=== PATIENT | male | born 1945 | race Caucasian/White ===

== ENCOUNTER 2021-06-08 15:20 | Inpatient (IN) ==
[2021-06-08] MEDS ORDERED: Benzonatate 100 MG CAPSULE PO PRN (18:07)
[2021-06-08] MEDS ORDERED: *HR* Dextrose 50 % in Water (Vial) 50 ML VIAL IVP PRN (18:07)
[2021-06-08] MEDS ORDERED: D5% in Water 1,000 ML IVC PRN (18:07)
[2021-06-08] MEDS ORDERED: Dextrose Gel 15 GM/37.5 ML TUBE PO PRN ×2 (18:07)
[2021-06-08] MEDS: *HR* OxyCODONE Immed Rel 5 MG TABLET PO PRN (20:04)
[2021-06-09] MEDS: *HR* Enoxaparin 40 MG/0.4 ML SYRINGE SQ SCH (06:03)
[2021-06-09 07:01] LABS: Basophils % 0.2 %; Eosinophils % 0.6 %; Hematocrit 30.5 % (37.5-50.1); Hemoglobin 9.4 g/dL (12.9-16.9); Immature Granulocytes % 0.4 % (0-4); Lymphocytes # 1.2 K/mcL (0.6-4.6); Lymphocytes % 22.9 %; Mean Corpuscular HGB Conc 30.8 g/dL (31.6-35.5); Mean Corpuscular Hemoglobin 24.6 pg (28.0-33.3); Mean Corpuscular Volume 79.8 fL (83.0-100.0); Mean Platelet Volume 9.9 fL (9.4-12.4); Monocytes # 0.4 K/mcL (0.0-1.3); Monocytes % 8.6 %; Neutrophils # 3.4 K/mcL (1.6-8.9); Platelet Count 213 K/mcL (140-400); Red Blood Count 3.82 M/mcL (4.19-5.50); Segmented Neutrophils % 67.3 %; White Blood Count 5.1 K/mcL (4.3-11.1)
[2021-06-09 07:25] LABS: BUN/Creatinine Ratio 23 (6-26); Blood Urea Nitrogen 20 mg/dL (8-23); Calcium 9.3 mg/dL (8.6-10.3); Carbon Dioxide 31 mEq/L (23-29); Chloride 95 mEq/L (98-107); Glucose 69 mg/dL (70-105); Osmolality,Calculated 277 (280-300); Potassium 3.9 mEq/L (3.5-5.1); Sodium 133 mEq/L (136-145); eGFR For African Americans > 60 (> 60); eGFR For Non-African Americans > 60 (> 60)
[2021-06-09] MEDS: Insulin LISPRO 300 UNITS/3 ML VIAL SUBQ SCH ×3 (08:52→16:28)
[2021-06-09] MEDS: predniSONE 10 MG TABLET PO SCH (09:06)
[2021-06-09] MEDS: Venlafaxine XR (24 HR) 150 MG CAP.ER.24H PO SCH (09:06)
[2021-06-09] MEDS: (Mirabegron [Myrbetriq] 50 MG Tab.Er.24h) PO SCH (11:08)
[2021-06-09] MEDS: *HR* OxyCODONE Immed Rel 5 MG TABLET PO PRN (11:31)
[2021-06-10] MEDS: *HR* OxyCODONE Immed Rel 5 MG TABLET PO PRN ×2 (02:49→18:43)
[2021-06-10] MEDS: *HR* Enoxaparin 40 MG/0.4 ML SYRINGE SQ SCH (05:30)
[2021-06-10] MEDS: Insulin LISPRO 300 UNITS/3 ML VIAL SUBQ SCH ×3 (08:07→16:55)
[2021-06-10] MEDS: predniSONE 10 MG TABLET PO SCH (10:49)
[2021-06-10] MEDS: Venlafaxine XR (24 HR) 150 MG CAP.ER.24H PO SCH (10:49)
[2021-06-10] MEDS: (Mirabegron [Myrbetriq] 50 MG Tab.Er.24h) PO SCH (10:49)
[2021-06-11] MEDS: *HR* Enoxaparin 40 MG/0.4 ML SYRINGE SQ SCH (05:13)
[2021-06-11] MEDS: *HR* OxyCODONE Immed Rel 5 MG TABLET PO PRN ×3 (05:13→21:24)
[2021-06-11] MEDS: Insulin LISPRO 300 UNITS/3 ML VIAL SUBQ SCH ×3 (09:04→17:06)
[2021-06-11] MEDS: (Mirabegron [Myrbetriq] 50 MG Tab.Er.24h) PO SCH (10:09)
[2021-06-11] MEDS: Venlafaxine XR (24 HR) 150 MG CAP.ER.24H PO SCH (10:09)
[2021-06-11] MEDS: predniSONE 10 MG TABLET PO SCH (10:09)
[2021-06-11] MEDS ORDERED: *HR* OxyCODONE Immed Rel 5 MG TABLET PO SCH (13:52)
[2021-06-12] MEDS: *HR* Enoxaparin 40 MG/0.4 ML SYRINGE SQ SCH (05:56)
[2021-06-12] MEDS: *HR* OxyCODONE Immed Rel 5 MG TABLET PO PRN ×3 (05:56→20:57)
[2021-06-12 08:04] LABS: Basophils % 0.2 %; Hematocrit 29.6 % (37.5-50.1); Immature Granulocytes % 0.7 % (0-4); Lymphocytes # 0.8 K/mcL (0.6-4.6); Lymphocytes % 19.8 %; Mean Corpuscular HGB Conc 33.8 g/dL (31.6-35.5); Mean Corpuscular Hemoglobin 26.9 pg (28.0-33.3); Mean Corpuscular Volume 79.6 fL (83.0-100.0); Mean Platelet Volume 9.2 fL (9.4-12.4); Monocytes # 0.4 K/mcL (0.0-1.3); Monocytes % 8.8 %; Neutrophils # 2.9 K/mcL (1.6-8.9); Platelet Count 222 K/mcL (140-400); Red Blood Count 3.72 M/mcL (4.19-5.50); Red Cell Distribution Width 19.9 % (11.5-14.5); Segmented Neutrophils % 69.5 %; White Blood Count 4.2 K/mcL (4.3-11.1)
[2021-06-12 08:16] LABS: BUN/Creatinine Ratio 21 (6-26); Blood Urea Nitrogen 18 mg/dL (8-23); Calcium 9.3 mg/dL (8.6-10.3); Carbon Dioxide 32 mEq/L (23-29); Chloride 93 mEq/L (98-107); Glucose 79 mg/dL (70-105); Osmolality,Calculated 273 (280-300); Potassium 3.9 mEq/L (3.5-5.1); Sodium 131 mEq/L (136-145); eGFR For African Americans > 60 (> 60); eGFR For Non-African Americans > 60 (> 60)
[2021-06-12] MEDS: Insulin LISPRO 300 UNITS/3 ML VIAL SUBQ SCH ×3 (08:50→16:59)
[2021-06-12] MEDS: predniSONE 10 MG TABLET PO SCH (09:30)
[2021-06-12] MEDS: (Mirabegron [Myrbetriq] 50 MG Tab.Er.24h) PO SCH (09:30)
[2021-06-12] MEDS: Venlafaxine XR (24 HR) 150 MG CAP.ER.24H PO SCH (09:30)
[2021-06-12] MEDS: *HR* OxyCODONE ER (12 HR) 10 MG TABLET PO SCH (16:58)
[2021-06-13] MEDS: *HR* OxyCODONE ER (12 HR) 10 MG TABLET PO SCH ×2 (05:20→16:48)
[2021-06-13] MEDS: *HR* Enoxaparin 40 MG/0.4 ML SYRINGE SQ SCH (06:09)
[2021-06-13] MEDS: (Mirabegron [Myrbetriq] 50 MG Tab.Er.24h) PO SCH (09:06)
[2021-06-13] MEDS: Insulin LISPRO 300 UNITS/3 ML VIAL SUBQ SCH ×3 (09:06→16:45)
[2021-06-13] MEDS: Venlafaxine XR (24 HR) 150 MG CAP.ER.24H PO SCH (09:06)
[2021-06-13] MEDS: predniSONE 10 MG TABLET PO SCH (09:06)
[2021-06-13] MEDS: *HR* OxyCODONE Immed Rel 5 MG TABLET PO PRN ×2 (13:07→21:01)
[2021-06-13 23:39] VITALS: BP 111/74; PULSE 81; RESP 14; TEMP 97.6; O2SAT 98
[2021-06-14] MEDS: *HR* OxyCODONE ER (12 HR) 10 MG TABLET PO SCH (05:21)
[2021-06-14] MEDS: *HR* Enoxaparin 40 MG/0.4 ML SYRINGE SQ SCH (05:21)
[2021-06-14] MEDS ORDERED: predniSONE 10 MG TABLET PO ONE (06:00)
[2021-06-14] MEDS ORDERED: Venlafaxine XR (24 HR) 150 MG CAP.ER.24H PO ONE (06:00)
[2021-06-14] MEDS: *HR* OxyCODONE Immed Rel 5 MG TABLET PO PRN (07:17)
== END 2021-06-14 07:39 | disposition hospice, home (50) | DRG 945 ==
LOC: INPPIK 18:14
PROVIDERS: ADMIT Family Medicine; ATTEND Family Medicine